=== PATIENT | female | born 1960 | race Two or more races ===

== ENCOUNTER 2024-08-07 15:28 | Inpatient (IN) | payer MEDICAID ==
[~2024-08-07] VITALS: Ht 157.5 cm; Wt 88.2 kg
--- NOTE | 2024-08-07 16:13 | ED.PDOC ---
GI ASSESSMENT HPI Comments 63 year old female presents to the ED with chief complaint of diarrhea. Patient reports that she has been experiencing diarrhea with associated nausea, vomiting, and cough for the past day. Patient relays that she has not followed up with her PCP. Patient denies any chest pain, abdominal pain, dizziness, headaches, and fever. Chief Complaint: Diarrhea Time Seen by MD: 16:08 Reviewed Notes: Nurses Notes, Medications, Allergies Allergies: Coded Allergies: NO KNOWN ALLERGIES (Unverified , 08/07/24) Information Source: Patient Mode of Arrival: Wheelchair Timing: Weeks Duration: Since onset Prehospital treatment: None Quality: Aching Vomitus: Watery Stool: Watery Severity: Moderate Recent: None Recent Hx of: None Pain Location: Diffuse Modifying Factors: Nothing Associated sign and symptoms: Nausea, Vomiting, Diarrhea, Abdominal Pain Past Medical History PAST MEDICAL HISTORY: Denies Surgical History: Denies all surgeries TOOL FILER HAND History: No Pertinent TOOL FILER HAND History Family History Family History: Reviewed,noncontributory to illness Social History Smoker: Non-Smoker Alcohol: Denies ETOH Use Drugs: Denies Drug Use Lives In: Home Constitutional: denies: chills, diaphoresis, fatigue, fever, malaise, sweats, weakness, others EENTM: denies: blurred vision, double vision, ear bleeding, ear discharge, ear drainage, ear pain, ear ringing, eye pain, eye redness, hearing loss, mouth pain, mouth swelling, nasal discharge, nose bleeding, nose congestion, nose pain, photophobia, tearing, throat pain, throat swelling, voice changes, others Respiratory: reports: cough; denies: hemoptysis, orthopnea, SOB at rest, shortness of breath, SOB with excertion, stridor, wheezing, others Cardiovascular: denies: chest pain, dizzy spells, diaphoresis, Dyspnea on exertion, edema, irregular heart beat, left arm pain, lightheadedness, palpitations, PND, syncope, others Gastrointestinal: reports: diarrhea, nausea, vomiting; denies: abdomen distended, abdominal pain, blood streaked bowels, constipated, dysphagia, difficulty swallowing, hematemesis, melena, poor appetite, poor fluid intake, rectal bleeding, rectal pain, others Genitourinary: denies: abnormal vagina bleeding, burning, dyspareunia, dysuria, flank pain, frequency, hematuria, incontinence, pain, , vagina discharge, urgency, others Neurological: denies: dizziness, fainting, headache, left sided numbness, left sided weakness, numbness, paresthesia, pre-existing deficit, right sided numbness, right sided weakness, seizure, speech problems, tingling, tremors, weakness, others Musculoskeletal: denies: back pain, gout, joint pain, joint swelling, muscle pain, muscle stiffness, neck pain, others Integumetry: denies: bruises, change in color, change in hair/nails, dryness, laceration, lesions, lumps, rash, wounds, others Allergic/Immunocompromised: denies: Difficulty Healing, Frequent Infections, Hives, Itching, others Hematologic/Lymphatic: denies: anemia, blood clots, easy bleeding, easy bruising, swollen glands, others Endocrine: denies: excessive hunger, excessive sweating, excessive thirst, excessive urination, flushing, intolerance to cold, intolerance to heat, unexplained weight gain, unexplained weight loss, others Psychiatric: denies: anxiety, bipolar disorder, depression, hopeless, panic disorder, schizophrenia, sleepless, suicidal, others All Other Systems: Reviewed and Negative Physical Exam General Appearance: Moderate Distress, Normal HEENT: Normal ENT Inspection, PERRL/EOMI Neck: Full Range of Motion, Non-Tender, Normal, Normal Inspection Respiratory: Chest Non-Tender, Lungs Clear, No Accessory Muscle Use, No Respiratory Distress, Normal Breath Sounds Cardiovascular: No Edema, No JVD, No Murmur, No Gallop, Normal Peripheral Pulses, Regular Rate/Rhythm Breast Exam: Deferred Gastrointestinal: No Organomegaly, Non Tender, No Pulsatile Mass, Normal Bowel Sounds, Soft Genitalia: Deferred Pelvic: Deferred Rectal: Deferred Extremities: Decreased range of motion (Right upper lower extremity), No calf tenderness, Normal capillary refill, Non-tender, No pedal edema Musculoskeletal : Apperance: Normal Neurologic: Alert, summer intern II-XII nml as Tested, Motor Weakness (Right upper lower extremity), Normal Mood, No Sensory Deficits Cerebellar Function: NOT DONE Reflexes: NOT DONE Skin: Dry, Normal Color, Warm Peripheral Pulses: 3+ Radial (R), 3+ Radial (L) Lymphatic: No Adenopathy Was a procedure done? Was a procedure done?: No GI differential Dx Differential Diagnosis: Constipation, Diverticular disease, Esophagitis, Gastritis/PUD, Gastroenteritis X-Ray, Labs, Meds, VS Vital Signs Date Time Temp Pulse Resp B/P (MAP) Pulse Ox O2 Delivery O2 Flow Rate FiO2 08/07/24 15:59 98.3 64 14 137/47 (77) 95 Patient alert. Has weakness of the right upper lower extremity. Vitals stable. Answering all questions. She does walk slowly with help of cane. Blood pressure within normal limits. Possible gastroenteritis. Establish intravenous access. Was given fluids. Was given Flagyl. Explained to the patient. Time of 1ST Reevaluation: 17:08 Reevaluation 1ST: Improved Patient Education/Counseling: Diagnosis, Treatment Family Education/Counseling: Diagnosis, Treatment Additional Information I reviewed the following notes from patient's past medical encounters: None The following tests were ordered, and results were reviewed by me: BMP, UA, CBC Additional Information was gathered from interviewing the following independent historians: Friend I reviewed and agreed with the following test results read by other providers: None I discussed treatment and results with medical personnel and friend. Departure 1 Departure Time of Disposition: 16:27 Impression: Primary Impression: Gastroenteritis Disposition: ADMITTED INPATIENT Admit to: Med Surg Condition: Guarded Critical Care Note Critical Care Time?: No Stability Stability form required: No Heart Score Heart Score: Heart Score Response (Comments) Value History N/A 0 EKG N/A 0 Age N/A 0 Risk Factors N/A 0 Troponin N/A 0 Total 0 I personally scribed for AMANUEL OROPEZA MD ([email or web address]) on 08/07/24 at 16:13. Electronically submitted by Lawrence Ramirez ([email or web address]). AMANUEL OROPEZA MD Aug 07, 2024 16:13
[2024-08-07 16:37] LABS: Basophils # (auto) 0.1 10 ^3/uL (0-0.2); Basophils % (auto) 0.7 % (0.0-2.0); Eosinophils # (auto) 0.2 10 ^3/uL (0-0.8); Eosinophils % (auto) 3.2 % (0.0-7.0); Hematocrit 43.6 % (36.0-46.0); Hemoglobin 14.6 g/dL (12.2-16.2); Lymphocytes # (auto) 2.4 10 ^3/uL (0.4-5.4); Lymphocytes % (auto) 32.1 % (10.0-50.0); Mean Corpuscular Hemoglobin 29.6 pg (28.0-32.0); Mean Corpuscular Hgb Conc. 33.6 g/dL (32.0-36.0); Mean Corpuscular Volume 88.2 fL (80.0-100.0); Monocytes # (auto) 0.5 10 ^3/uL (0-1.3); Monocytes % (auto) 6.1 % (0.0-12.0); Neutrophils # (auto) 4.4 10 ^3/uL (1.6-8.6); Neutrophils % (auto) 57.9 % (37.0-80.0); Nucleated Red Blood Cells % 0.1 %; Platelet Count (auto) 307 10^3/uL (140-450); Red Blood Cells 4.94 10^6/uL (4.0-5.20); Red Cell Distribution Width 14.1 % (11.8-14.3); White Blood Cell 7.6 10^3/uL (4.4-10.8)
[2024-08-07 16:49] LABS: Chloride 103 mmol/L (98-107); Potassium 3.9 mmol/L (3.5-5.1); Sodium 139 mmol/L (136-145)
[2024-08-07 16:50] LABS: Anion Gap 7 (5-15); Calcium 10.3 mg/dL (8.7-10.4); Carbon Dioxide 29 mmol/L (20-31)
[2024-08-07 16:55] LABS: BUN/Creatinine Ratio 8.5 (10.0-20.0)
[2024-08-07 17:01] LABS: Blood Urea Nitrogen 6 mg/dL (9-23); Glucose 107 mg/dL (74-106)
--- NOTE | 2024-08-07 17:17 | DVH ---
CT ABDOMEN AND PELVIS WITHOUT CONTRAST CLINICAL HISTORY: enteritis TECHNIQUE: Multiple contiguous axial images of the abdomen and pelvis without intravenous contrast. The images were reformatted degenerate coronal and sagittal reconstructions. All CT scans at this medical facility are performed using dose modulation techniques as appropriate t o a performed exam including the following:Automated exposure control was utilized; adjustment of the MA and/or KV according to patient size; and use of iterative reconstruction technique. Radiation Dose Information: CT Dose: CTDI volume is 21.89 mGy. Dose-length product is 1171.91 mGy*cm Comparison: None FINDINGS: Evaluation of the abdomen and pelvis is limited without intravenous contrast. There is a 1.9 cm hypodense left adrenal gland nodule likely an adenoma. The right adrenal gland jennifer ears within normal limits. The gallbladder is surgically absent. The liver, pancreas, kidneys, and spleen appear within norm al limits. There is no gross evidence of abdominal lymphadenopathy. There is no free fluid or free air. The stomach grossly appears unremarkable. The small and large bowel loops demonstrate normal caliber . There are diverticula in the sigmoid colon without evidence of acute diverticulitis. There are calcified atherosclerotic changes in the abdominal aorta. The IVC appears within normal li mits. The bladder appears unremarkable for the degree of distention. Pelvic organ appears within normal bansal its. There is no gross evidence of a pelvic mass. There is no free fluid collection. There is scarring versus atelectasis in the lung bases. There is no acute osseous abnormality. IMPRESSION: 1. There is no acute process in the abdomen and pelvis. 2. Sigmoid diverticulosis. 3. 1.9 cm hypodense left adrenal gland nodule likely an adenoma. HS:Y
[2024-08-07 20:00] VITALS: PULSE 70; RESP 16; O2SAT 99
[2024-08-07] MEDS ORDERED: LOPERAMIDE HCL 2 MG CAP/TAB PO PRN (20:00)
[2024-08-07] MEDS ORDERED: ONDANSETRON HCL 4 MG/2 ML VIAL IV PRN (20:00)
[2024-08-07] MEDS ORDERED: ACETAMINOPHEN 325 MG TAB PO PRN (20:00)
[2024-08-07] MEDS ORDERED: HYDROcodone-ACET 5/325MG TAB PO PRN (20:00)
[2024-08-07] MEDS: metroNIDAZOLE 500MG/100ML 100 ML IV ONE (20:47)
[2024-08-07] MEDS: SODIUM CHLORIDE 0.9% 1,000 ML IV ONE (20:47)
[2024-08-07 20:48] VITALS: PULSE 66; RESP 16; O2SAT 96
--- NOTE | 2024-08-07 20:58 | DVHHP2 ---
History of Present Illness Reason for Visit: Diarrhea History of Present Illness 63-year-old female presents for evaluation of diarrhea. Patient endorses a two week history of intermittent diarrhea with occasional nausea. Patient also reports having a cough for the past one day. Denies shortness or breath. No other acute complaints reported. Past Medical History Dyslipidemia,? Dementia Past Surgical History Denies Family History Noncontributory Smoke: No ALCOHOL: none Drugs: None Lives: with Family Review of Systems Review of Systems Review of systems are currently negative otherwise addressed in HPI. Allergies: Coded Allergies: NO KNOWN ALLERGIES (Unverified , 08/07/24) Medications Current Medications Medications Dose Ordered Sig/Claudia Route Start Time Stop Time Status Last Admin Dose Admin Metronidazole 100 ml @ 100 mls/hr Q8HR IV 08/07/24 22:00 UNV Loperamide HCl 2 mg PRN PRN PO 08/07/24 20:00 UNV Memantine 10 mg Q12HR PO 08/07/24 22:00 UNV Atorvastatin Calcium 40 mg HS PO 08/07/24 22:00 UNV Clopidogrel Bisulfate 75 mg DAILY PO 08/08/24 10:00 UNV Donepezil HCl 5 mg HS PO 08/07/24 22:00 UNV Primidone 50 mg HS PO 08/07/24 22:00 UNV Acetaminophen/ Hydrocodone Bitart 1 tab Q4HP PRN PO 08/07/24 20:00 UNV Ondansetron HCl 4 mg Q4HP PRN IV 08/07/24 20:00 UNV Acetaminophen 650 mg Q6HP PRN PO 08/07/24 20:00 UNV Exam Vital Signs Vital Signs Date Time Temp Pulse Resp B/P (MAP) Pulse Ox O2 Delivery O2 Flow Rate FiO2 08/07/24 20:48 97.3 66 18 151/76 (101) 96 97.3 Exam Gen: 63-year-old female in mild distress Skin: Warm, dry, normal color and texture, no rash. HEENT: Normocephalic atraumatic, mucous membranes moist and pink. Neck: Cervical and supraclavicular nodes normal without enlargement, trachea is midline, thyroid gland is normal without masses. Pulmonary: Clear to auscultation and percussion bilaterally. Cardiac: Regular rate and rhythm. No murmur Abdomen: Soft, nontender, nondistended, bowel sounds present all 4 quadrants, no guarding, no rigidity, no organomegaly. Extremities: No cyanosis, clubbing, no edema Neuro: Cranial nerves II through XII grossly intact, normal affect and speech, no focal motor deficits. Labs/Xrays ORDERING PHYSICIAN: AMANUEL OROPEZA MD PROCEDURE(s): ABPL - CT AB PEL WO CON-NO ORAL OR IV REASON: enteritis ORDER NUMBER(s): [id number], ACCESSION NUMBER(s): [id number] CT ABDOMEN AND PELVIS WITHOUT CONTRAST CLINICAL HISTORY: enteritis TECHNIQUE: Multiple contiguous axial images of the abdomen and pelvis without intravenous contrast. The images were reformatted degenerate coronal and sagittal reconstructions. All CT scans at this medical facility are performed using dose modulation techniques as appropriate to a performed exam including the following:Automated exposure control was utilized; adjustment of the MA and/or KV according to patient size; and use of iterative reconstruction technique. Radiation Dose Information: CT Dose: CTDI volume is 21.89 mGy. Dose-length product is 1171.91 mGy*cm Comparison: None FINDINGS: Evaluation of the abdomen and pelvis is limited without intravenous contrast. There is a 1.9 cm hypodense left adrenal gland nodule likely an adenoma. The right adrenal gland appears within normal limits. The gallbladder is surgically absent. The liver, pancreas, kidneys, and spleen appear within normal limits. There is no gross evidence of abdominal lymphadenopathy. There is no free fluid or free air. The stomach grossly appears unremarkable. The small and large bowel loops demonstrate normal caliber. There are diverticula in the sigmoid colon without evidence of acute diverticulitis. There are calcified atherosclerotic changes in the abdominal aorta. The IVC appears within normal limits. The bladder appears unremarkable for the degree of distention. Pelvic organ appears within normal limits. There is no gross evidence of a pelvic mass. There is no free fluid collection. There is scarring versus atelectasis in the lung bases. There is no acute osseous abnormality. IMPRESSION: 1. There is no acute process in the abdomen and pelvis. 2. Sigmoid diverticulosis. 3. 1.9 cm hypodense left adrenal gland nodule likely an adenoma. HS:Y Labs Test 08/07/24 16:19 Range/Units White Blood Count 7.6 4.4-10.8 10^3/uL Red Blood Count 4.94 4.0-5.20 10^6/uL Hemoglobin 14.6 12.2-16.2 g/dL Hematocrit 43.6 36.0-46.0 % Mean Corpuscular Volume 88.2 80.0-100.0 fL Mean Corpuscular Hemoglobin 29.6 28.0-32.0 pg Mean Corpuscular Hemoglobin Concent 33.6 32.0-36.0 g/dL Red Cell Distribution Width 14.1 11.8-14.3 % Platelet Count 307 140-450 10^3/uL Mean Platelet Volume 8.5 6.9-10.8 fL Neutrophils (%) (Auto) 57.9 37.0-80.0 % Lymphocytes (%) (Auto) 32.1 10.0-50.0 % Monocytes (%) (Auto) 6.1 0.0-12.0 % Eosinophils (%) (Auto) 3.2 0.0-7.0 % Basophils (%) (Auto) 0.7 0.0-2.0 % Neutrophils # (Auto) 4.4 1.6-8.6 10 ^3/uL Lymphocytes # (Auto) 2.4 0.4-5.4 10 ^3/uL Monocytes # (Auto) 0.5 0-1.3 10 ^3/uL Eosinophils # (Auto) 0.2 0-0.8 10 ^3/uL Basophils # (Auto) 0.1 0-0.2 10 ^3/uL Nucleated Red Blood Cells 0.1 % Sodium Level 139 136-145 mmol/L Potassium Level 3.9 3.5-5.1 mmol/L Chloride Level 103 98-107 mmol/L Carbon Dioxide Level 29 20-31 mmol/L Anion Gap 7 5-15 Blood Urea Nitrogen 6 L 9-23 mg/dL Creatinine 0.71 0.550-1.02 mg/dL Glomerular Filtration Rate Calc 95 >90 mL/min BUN/Creatinine Ratio 8.5 L 10.0-20.0 Serum Glucose 107 H 74-106 mg/dL Calcium Level 10.3 8.7-10.4 mg/dL Lipase 44 12-53 U/L Assessment/Plan Assessment/Plan Assessment Acute gastroenteritis ? Dementia Plan Admit the patient to [facility] to the hospitalist Clear liquid diet Stool bacterial culture pending Flagyl Resume home medications Continue treatment per orders. Plan discussed with: Patient My Orders Orders - CHIO CHUA Procedure Category Date Status Time Metronidazole PHA 08/07/24 Logged 500mg/100ml (Flagyl 22:00 Loperamide Capsule PHA 08/07/24 Logged (Imodium Capsule) 20:00 Memantine Tablet PHA 08/07/24 Logged (Namenda Tablet) 22:00 Atorvastatin (Lipitor) PHA 08/07/24 Logged 22:00 Clopidogrel Bisulfate PHA 08/08/24 Logged (Plavix) 10:00 Donepezil Tablet PHA 08/07/24 Logged (Aricept Tablet) 22:00 Primidone Tablet PHA 08/07/24 Logged (Mysoline Tablet) 22:00 Basic Metabolic Panel LAB 08/08/24 Verified 04:00 Stool Bacterial JIM 08/07/24 Logged Culture 19:47 Admit ADMIT 08/07/24 Transmitted 19:47 Hydrocodone-Acet PHA 08/07/24 Logged 5/325mg Tab ([place] 20:00 Ondansetron Hcl PHA 08/07/24 Logged (Zofran) 20:00 Complete Blood Count LAB 08/08/24 Verified 04:00 Condition: Stable [place] 08/07/24 In Process 19:47 Acetaminophen Tablet PHA 08/07/24 Logged (Tylenol Tablet) 20:00 Clear Liq Diet DIET 08/08/24 Transmitted Breakfast Bedrest With Bathroom [place] 08/07/24 In Process Privileg 19:47 Date of Service: Aug 07, 2024 Billing Provider: CHIO CHUA Common Visit Codes: [id number] INP/OBS CARE (MOD) CHIO CHUA Aug 07, 2024 20:58
[2024-08-07] MEDS: DONEPEZIL HYDROCHLORIDE 5 MG TAB PO SCH (22:51)
[2024-08-07] MEDS: ATORVASTATIN 20 MG TAB PO SCH (22:51)
[2024-08-07] MEDS: metroNIDAZOLE 500MG/100ML 100 ML IV SCH (22:51)
[2024-08-07] MEDS: MEMANTINE HCL 5 MG TAB PO SCH (22:52)
[2024-08-07] MEDS: PRIMIDONE 50 MG TAB PO SCH (22:52)
[2024-08-08] VITALS (7 sets, daily range): BP systolic 138–145; BP diastolic 63–67; PULSE 65–77; RESP 13–19; TEMP 98–98.6; O2SAT 93–99
[2024-08-08 06:38] LABS: Potassium 3.7 mmol/L (3.5-5.1); Sodium 138 mmol/L (136-145)
[2024-08-08 06:39] LABS: Anion Gap 10 (5-15); Carbon Dioxide 21 mmol/L (20-31)
[2024-08-08 06:40] LABS: Calcium 10.2 mg/dL (8.7-10.4)
[2024-08-08 06:44] LABS: BUN/Creatinine Ratio 10.3 (10.0-20.0)
[2024-08-08 06:45] LABS: Blood Urea Nitrogen 7 mg/dL (9-23); Chloride 107 mmol/L (98-107); Glucose 109 mg/dL (74-106)
--- NOTE | 2024-08-08 07:06 | DVH ---
CHEST RADIOGRAPH Indication: cough Technique: Single frontal view of the chest was obtained COMPARISON: None FINDINGS: Lines and Tubes: None Lungs: Congestion Pleura: No effusion. No pneumothorax. Cardiomediastinal contours: Unremarkable Bones: Unremarkable IMPRESSION: Congestion
[2024-08-08 09:00] LABS: Basophils # (auto) 0 10 ^3/uL (0-0.2); Basophils % (auto) 0.5 % (0.0-2.0); Eosinophils # (auto) 0.2 10 ^3/uL (0-0.8); Eosinophils % (auto) 2.2 % (0.0-7.0); Hematocrit 39.2 % (36.0-46.0); Hemoglobin 13.2 g/dL (12.2-16.2); Lymphocytes # (auto) 2.2 10 ^3/uL (0.4-5.4); Lymphocytes % (auto) 22.6 % (10.0-50.0); Mean Corpuscular Hemoglobin 29.5 pg (28.0-32.0); Mean Corpuscular Hgb Conc. 33.8 g/dL (32.0-36.0); Mean Corpuscular Volume 87.4 fL (80.0-100.0); Monocytes # (auto) 0.6 10 ^3/uL (0-1.3); Monocytes % (auto) 6.3 % (0.0-12.0); Neutrophils # (auto) 6.7 10 ^3/uL (1.6-8.6); Neutrophils % (auto) 68.4 % (37.0-80.0); Nucleated Red Blood Cells % 0.1 %; Platelet Count (auto) 316 10^3/uL (140-450); Red Blood Cells 4.49 10^6/uL (4.0-5.20); White Blood Cell 9.7 10^3/uL (4.4-10.8)
[2024-08-08] MEDS: CLOPIDOGREL BISULFATE 75 MG TAB PO SCH (09:07)
--- NOTE | 2024-08-08 13:42 | DVHPN2 ---
Assessment/Plan Assessment/Plan Progress note 63 yo F with dementia admitted for diarrhea. 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 Worsens after taking food. No hx of colonoscopy Physical exam Alert oriented x3 Clear breath sounds, coughing S1 S2 RRR no murmur Abdomen soft, nontender no LE edema Labs, imaging and EKG reviewed Assessment and plan Diarrhea, noninfectious vs indolent bacterial Cough likely viral URI HTN Dementa Resume prashanth emeds liquid diet, advance as tolerated NS maintenance while not able to eat Robitusin Send HIV, stool O&P, stool WBC, cdiff diet clear, advance as tolerated dvt ppx lovenox Plan discussed with: Patient Date of Service: Aug 08, 2024 Billing Provider: RICHI CORTÉS MD Common Visit Codes: [id number] INP/OBS CARE(HIGH) RICHI CORTÉS MD Aug 08, 2024 13:42
[2024-08-08] MEDS: SODIUM CHLORIDE 0.9% 1,000 ML IV SCH (14:12)
[2024-08-09] VITALS (7 sets, daily range): BP systolic 117–147; BP diastolic 63–88; PULSE 63–82; RESP 16–20; TEMP 97.2–99.1; O2SAT 90–94
[2024-08-09 06:19] LABS: Basophils # (auto) 0.1 10 ^3/uL (0-0.2); Basophils % (auto) 0.7 % (0.0-2.0); Eosinophils # (auto) 0.3 10 ^3/uL (0-0.8); Eosinophils % (auto) 3.3 % (0.0-7.0); Hematocrit 38.7 % (36.0-46.0); Hemoglobin 12.8 g/dL (12.2-16.2); Lymphocytes # (auto) 2.1 10 ^3/uL (0.4-5.4); Lymphocytes % (auto) 27.1 % (10.0-50.0); Mean Corpuscular Hemoglobin 29.5 pg (28.0-32.0); Mean Corpuscular Hgb Conc. 33.1 g/dL (32.0-36.0); Mean Corpuscular Volume 89.2 fL (80.0-100.0); Monocytes # (auto) 0.6 10 ^3/uL (0-1.3); Monocytes % (auto) 7.2 % (0.0-12.0); Neutrophils # (auto) 4.8 10 ^3/uL (1.6-8.6); Neutrophils % (auto) 61.7 % (37.0-80.0); Platelet Count (auto) 295 10^3/uL (140-450); Red Blood Cells 4.34 10^6/uL (4.0-5.20); Red Cell Distribution Width 14.3 % (11.8-14.3); White Blood Cell 7.8 10^3/uL (4.4-10.8)
[2024-08-09 06:42] LABS: Potassium 3.6 mmol/L (3.5-5.1); Sodium 142 mmol/L (136-145)
[2024-08-09 06:43] LABS: Anion Gap 7 (5-15); Calcium 9.5 mg/dL (8.7-10.4); Carbon Dioxide 25 mmol/L (20-31)
[2024-08-09 06:48] LABS: Glucose 99 mg/dL (74-106)
[2024-08-09 06:49] LABS: Magnesium 1.9 mg/dL (1.6-2.6)
[2024-08-09 06:50] LABS: BUN/Creatinine Ratio 8.8 (10.0-20.0); Blood Urea Nitrogen < 5 mg/dL (9-23); Chloride 110 mmol/L (98-107); Phosphorus 3.7 mg/dL (2.4-5.1)
[2024-08-09 14:59] LABS: Urine Bacteria FEW /hpf (None Seen); Urine Blood 1+ /uL (Negative); Urine Clarity Turbid (Clear); Urine Color Light-Yellow (Yellow); Urine Mucus FEW (None Seen); Urine Protein, UAD Negative (Negative); Urine Specific Gravity 1.014 (1.001-1.035); Urine Squamous Epithelial Cell FEW /hpf (<5); Urine Urobilinogen Normal (Negative); Urine WBC 10 /hpf (0 - 5); Urine pH 5.5 (5.0-9.0)
--- NOTE | 2024-08-09 21:10 | DVHPN2 ---
Assessment/Plan Assessment/Plan Progress note 63 yo F with dementia admitted for diarrhea. reported 3-5 times daily watery diarrhea since 3 weeks [employer]AKING [employer], non bloody, no mucous. Worsens after taking food. No hx of colonoscopy seen by me today during rounds. still having watery diarrhea, no WBC. Discharge pending cdiff result. Able to tolerate oral. TSH mildly low likely euthyroid Physical exam Alert oriented x3 Clear breath sounds, coughing S1 S2 RRR no murmur Abdomen soft, nontender no LE edema Labs, imaging and EKG reviewed Assessment and plan Diarrhea, noninfectious vs indolent bacterial Cough likely viral URI HTN Dementa Resume prashanth emeds liquid diet, advance as tolerated NS maintenance while not able to eat Robitusin Send HIV, stool O&P, stool WBC, cdiff diet clear, advance as tolerated dvt ppx lovenox Plan discussed with: Patient My Orders Orders - RICHI CORTÉS MD Procedure Category Date Status Time Consistent DIET 08/09/24 Transmitted Carb(Ccho)Diabetes Lunch Date of Service: Aug 09, 2024 Billing Provider: RICHI CORTÉS MD Common Visit Codes: [id number] INP/OBS CARE(MOD) RICHI CORTÉS MD Aug 09, 2024 21:10
[2024-08-10] VITALS (7 sets, daily range): BP systolic 112–156; BP diastolic 46–78; PULSE 59–72; RESP 16–19; TEMP 97.5–98.5; O2SAT 90–95
[2024-08-10] MEDS: guaiFENesin-DM 100/10mg/5ml SYR PO PRN (06:56)
--- NOTE | 2024-08-10 20:44 | DVHPN2 ---
Subjective in bed feeling better with less diarrhea Changes from previous H/P or p: No Changes Objective Vitals Vital Signs Date Time Temp Pulse Resp B/P (MAP) Pulse Ox O2 Delivery O2 Flow Rate FiO2 08/10/24 17:00 98.3 61 16 145/75 (98) 91 98.3 08/09/24 08:00 Room Air* 0 21 Intake/Output Intake and Output 08/10/24 04:59 Intake Total 2640 ml Balance 2640 ml Intake Oral 1740 ml IV Total 900 ml # Voids 6 # Bowel Movements 4 Medications Current Medications Medications Dose Ordered Sig/Claudia Route Start Time Stop Time Status Last Admin Dose Admin Memantine 10 mg Q12HR PO 08/07/24 22:00 08/10/24 09:48 10 MG Atorvastatin Calcium 40 mg HS PO 08/07/24 22:00 08/09/24 21:15 40 MG Clopidogrel Bisulfate 75 mg DAILY PO 08/08/24 10:00 08/10/24 09:48 75 MG Donepezil HCl 5 mg HS PO 08/07/24 22:00 08/09/24 21:15 5 MG Primidone 50 mg HS PO 08/07/24 22:00 08/09/24 21:16 50 MG Acetaminophen 650 mg Q6HP PRN PO 08/07/24 20:00 Guaifenesin/ Dextromethorphan 10 ml Q4HP PRN PO 08/08/24 13:45 08/10/24 18:55 10 ML Laboratory Results Laboratory Tests 08/09/24 05:31 Urinalysis Test 08/09/24 13:10 Urine Color Light-yellow (Yellow) Urine Clarity Turbid (Clear) H Urine pH 5.5 (5.0-9.0) Urine Specific [place] 1.014 (1.001-1.035) Urine Protein Negative (Negative) Urine Ketones Negative (Negative) Urine Blood 1+ /uL (Negative) H Urine Nitrite Negative (Negative) Urine Bilirubin Negative (Negative) Urine Urobilinogen Normal mg/dL (Negative) Urine Leukocyte Esterase 3+ /uL (Negative) Urine RBC 17 /hpf (0 - 4) Urine WBC 10 /hpf (0 - 5) Urine Squamous Epithelial Cells Few /hpf (<5) Urine Bacteria Few /hpf (None Seen) H Urine Mucus Few (None Seen) Urine Glucose Normal mg/dL (Normal) Microbiology Microbiology Date/Time Source Procedure Growth Status 08/08/24 23:10 Stool Clostridium difficile Toxin Assay - Final Complete Assessment/Plan Assessment/Plan Diarrhea, noninfectious vs indolent bacterial Cough likely viral URI HTN Dementa Resume prashanth emeds liquid diet, advance as tolerated NS maintenance while not able to eat Robitusin Send HIV, stool O&P, stool WBC, cdiff diet clear, advance as tolerated dvt ppx lovenox Plan discussed with: Patient Date of Service: Aug 10, 2024 Billing Provider: RIGO LEACH MD Common Visit Codes: [id number] INP/OBS CARE(HIGH) RIGO LEACH MD Aug 10, 2024 20:44
[2024-08-11 05:00] VITALS: BP 143/62; PULSE 63; RESP 16; TEMP 97.5; O2SAT 91
[2024-08-11 08:00] VITALS: PULSE 75
[2024-08-11 09:00] VITALS: BP 141/70; PULSE 61; RESP 16; TEMP 98; O2SAT 92
[2024-08-11 13:00] VITALS: BP 137/72; PULSE 64; RESP 18; TEMP 97.2; O2SAT 94
[2024-08-11] MEDS ORDERED: CLOP75TA70 PO (13:37)
[2024-08-11] MEDS ORDERED: ATOR20TA50 PO (13:37)
[2024-08-11] MEDS ORDERED: DONE5TAB80 PO (13:40)
[2024-08-11] MEDS ORDERED: PRIM50TA5 PO (13:40)
[2024-08-11 16:55] VITALS: BP 136/75; PULSE 96; RESP 20; TEMP 98.6; O2SAT 98
[2024-08-11 16:58] VITALS: BP 119/57; PULSE 64; RESP 16; TEMP 97.5; O2SAT 92
== END 2024-08-11 19:08 | disposition home or self-care (01) | DRG 249 ==
LOC: ER 15:47 → OVERFLOW 19:47 → CENTRAL 08-08 18:43
PROVIDERS: ADMIT Hospitalist; ATTEND Hospitalist
DX: K52.9 Noninfective gastroenteritis and colitis, unspecified (principal); F03.90 Unspecified dementia, unspecified severity, without behavioral disturbance, psychotic disturbance, mood disturbance, and anxiety; I10 Essential (primary) hypertension; J06.9 Acute upper respiratory infection, unspecified
CPT/HCPCS: 36415; 71045; 74176; 80048; 81001; 83690; 83735; 84100; 84443; 85025; 85048; 86703; 87045; 87427; 87493; G0378; J3490